=== PATIENT | male | born 1985 | race Caucasian/White ===

== ENCOUNTER 2016-11-05 14:18 | Emergency (ER) | payer OTHER ==
[~2016-11-05] VITALS: Ht 172.7 cm; Wt 81.8 kg
[~2016-11-05 14:18] MED LIST: ADRENACLICK IM; PREDNISONE20 MG PO; VYVANSE50 MG PO
[2016-11-05 14:22] VITALS: BP 180/104; PULSE 98; TEMP 98.1
[2016-11-05] MEDS ORDERED: ZITHROMAX 250M250 MG PO (16:08)
[2016-11-05] MEDS ORDERED: ZOFRAN 4MG T4 MG/TAB PO (16:10)
[2016-11-05] MEDS ORDERED: NORCO 325 MG-51 TAB PO (16:10)
== END 2016-11-05 16:19 | disposition home or self-care (01) ==
LOC: COL.ER 14:18
DX: S02.31XA Fracture of orbital floor, right side, initial encounter for closed fracture (principal); S02.40CA Maxillary fracture, right side, initial encounter for closed fracture; Z23 Encounter for immunization; W22.8XXA Striking against or struck by other objects, initial encounter; Y93.41 Activity, dancing